=== PATIENT | male | born 1935 | race Caucasian/White ===

== ENCOUNTER → 2016-08-24 | Outpatient (CLI) | payer MEDICARE ==
--- NOTE | 2016-08-24 08:43 | US ---
EXAMINATION TYPE: US prostate transrectal DATE OF EXAM: 08/24/2016 7:54 AM COMPARISON: NONE CLINICAL HISTORY: R97.20 elevated PSA level. This examination was performed using the transrectal probe. EXAM MEASUREMENTS: Gland Size: 4.7 x 4.1 x 5.6 cm Volume: 57.4 ml Predicted PSA: 6.9 Actual PSA (if available):4.7 TECHNOLOGIST IMPRESSION: Hypoechoic lesion lt peripheral zone measuring 1.1 x 0.7 x 1.3 cm; hyperva scularity corresponds to area of lesion Seminal vesicles are incompletely imaged on single view saved. Prostate gland is enlarged in size and heterogeneous in appearance. Central zone hypertrophy is present. On image 35 and oval hypoechoic hy pervascular nodule is identified mid to apical level. IMPRESSION: Prostate gland is enlarged in size consistent with BPH, suspicious hypoechoic nodule lef t peripheral zone is noted. Further investigation with ultrasound guided core biopsy advised at this level as neoplasm needs to be considered.
== END | disposition home or self-care (01) ==
LOC: RADUSMAIN 07:24
PROVIDERS: ATTEND Internal Medicine
DX: N40.0 Benign prostatic hyperplasia without lower urinary tract symptoms (principal)
CPT/HCPCS: 76872

== ENCOUNTER 2016-10-09 08:32 | Day surgery (SDC) | payer MEDICARE ==
[2016-10-09 08:48] VITALS: RESP 20; TEMP 97.8
[2016-10-09 10:43] VITALS: BP 147/76; PULSE 57
--- NOTE | 2016-10-09 10:56 | US ---
Ultrasound-guided transrectal biopsy of the prostate gland. HISTORY: Elevated PSA. Informed consent was obtained and all the patient's questions were answered. Topical Xylocaine gel w as applied to the probe. The prostate gland was localized sonographically and 13 total samples were obtained with with 3 targeted samples of the lesion in question at the left apex. An 18-gauge biopsy device was utilized. Sites include right base, left base, right mid gland, left mid gland, right ap ex and left apex. Samples were sent to pathology further evaluation. The patient was monitored foll owing the biopsy for approximately one hour. At the time of discharge patient's urine was clear and vitals were stable. IMPRESSION: Successful ultrasound guided core biopsy of the prostate gland. Pathology results are pe nding.
== END 2016-10-09 11:15 | disposition home or self-care (01) ==
LOC: RADPROMAIN 08:32
PROVIDERS: ATTEND Surgery
DX: C61 Malignant neoplasm of prostate (principal); R93.8 Abnormal findings on diagnostic imaging of other specified body structures; R97.20 Elevated prostate specific antigen [PSA]
CPT/HCPCS: 55700; 88305

== ENCOUNTER → 2016-10-24 | Outpatient (CLI) | payer MEDICARE ==
[2016-10-24 09:04] LABS: Blood Urea Nitrogen 17 mg/dL (9-20); Non-African American GFR(MDRD) >60 (>60 ml/min/1.73 sqM)
--- NOTE | 2016-10-24 09:38 | XR ---
EXAMINATION TYPE: XR chest 2V DATE OF EXAM: 10/24/2016 8:56 AM COMPARISON: NONE HISTORY: Prostate cancer. TECHNIQUE: Frontal and lateral views of the chest are obtained. FINDINGS: There is no focal air space opacity, pleural effusion, or pneumothorax seen. The cardiac silhouette size is upper limits of normal. Some multilevel spurring in the thoracic spine is present. IMPRESSION: No acute cardiopulmonary process.
--- NOTE | 2016-10-24 11:10 | CT ---
EXAMINATION TYPE: CT abdomen pelvis w con DATE OF EXAM: 10/24/2016 10:45 AM COMPARISON: NONE HISTORY: Patient had US of prostate and was diagnosed with prostate cancer CT DLP: 1812.8 mGycm CONTRAST: CT scan of the abdomen and pelvis is performed with Oral Contrast and with IV Contrast, patient injec tacho with 100 mL of Omnipaque 300. FINDINGS: LUNG BASES-: No visible nodule. No infiltrate. LIVER/GB: No calcified gallstones. There is evidence of fatty hepatic infiltration. Simple cyst in the caudate lobe measures 2 cm in greatest dimension. No additional space-occupying lesions are prese nt. Biliary tree is of normal caliber. PANCREAS: No inflammation. No distinct mass. SPLEEN: No splenic enlargement. No lesion seen. ADRENALS: No nodule. No thickening. KIDNEYS/BLADDER: No hydronephrosis. No nephrolithiasis. Subcentimeter right renal cortical cyst. U rinary bladder grossly unremarkable. BOWEL: Normal appendix. Normal bowel caliber. No inflammation. GENITAL ORGANS: No gross abnormality. LYMPH NODES: No greater than 1cm abdominal or pelvic lymph nodes are appreciated. AORTA: No significant abnormality. 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 No blastic lesions a re seen at this time. Severe degenerative change about the hips bilaterally. Subchondral cystic guerrero e noted. OTHER: No significant additional abnormality is seen. IMPRESSION: 1. No CT evidence to suggest metastatic disease at this time. 2. Fatty liver. 3. Simple hepatic and right renal cysts.
--- NOTE | 2016-10-24 14:38 | NM ---
EXAMINATION TYPE: NM bone scan whole body DATE OF EXAM: 10/24/2016 1:59 PM COMPARISON: CT abdomen and pelvis earlier today. HISTORY: Prostate cancer. Delayed whole-body scanning was performed following the injection of 26.6 mCi Tc 99m MDP. Images acq uired 3 hours post injection. Whole body images as well as spot images of the thorax abdomen and pelv is are acquired. FINDINGS: Single focus of increased radiotracer uptake anterolateral left mid to lower rib roughly seventh eigh th rib correlates with bridging costochondral cartilage on CT. No additional areas of abnormal radiot racer uptake are seen to suggest metastatic disease to the bone or other abnormality. IMPRESSION: No convincing scintigraphic evidence for metastatic disease of bone.
== END ==
LOC: RADCTMAIN 08:22
PROVIDERS: ATTEND Urology
DX: C61 Malignant neoplasm of prostate (principal); N28.1 Cyst of kidney, acquired; K76.0 Fatty (change of) liver, not elsewhere classified
CPT/HCPCS: 82565; 84520; 71020; 74177; 36415; 78306; A9503; Q9967

== ENCOUNTER → 2017-05-03 | Outpatient (CLI) | payer MEDICARE ==
[2017-05-03 09:27] LABS: ALT 66 U/L (21-72); AST 51 U/L (17-59); Alkaline Phosphatase 48 U/L (38-126); Anion Gap 10 mmol/L; Blood Urea Nitrogen 26 mg/dL (9-20); Calcium 9.9 mg/dL (8.4-10.2); Carbon Dioxide 25 mmol/L (22-30); Chloride 102 mmol/L (98-107); Glucose 124 mg/dL (74-99); Non-African American GFR(MDRD) >60 (>60 ml/min/1.73 sqM); Potassium 4.6 mmol/L (3.5-5.1); Sodium 137 mmol/L (137-145); Total Bilirubin 0.6 mg/dL (0.2-1.3); Total Protein 7.3 g/dL (6.3-8.2)
[2017-05-03 09:32] LABS: Basophils % (A) 0 %; CH 34.5; CHCM 34.6; Eosinophils # (A) 0.2 k/uL (0-0.7); Eosinophils % (A) 4 %; HCT 36.6 % (39.0-53.0); HDW 2.25; HGB 12.4 gm/dL (13.0-17.5); Luc # (Auto) 0.11; Luc % (Auto) 2; Lymphocytes # (A) 0.8 k/uL (1.0-4.8); Lymphocytes % (A) 17 %; MCH 33.9 pg (25.0-35.0); MCHC 33.9 g/dL (31.0-37.0); Mean Platelet Volume 7.7; Monocytes # (A) 0.4 k/uL (0-1.0); Monocytes % (A) 9 %; Neutrophils # (A) 3.4 k/uL (1.3-7.7); Neutrophils % (A) 68 %; RBC 3.66 m/uL (4.30-5.90); RDW 12.5 % (11.5-15.5); WBC 4.9 k/uL (3.8-10.6); WBC (Perox) 4.91
[2017-05-03 10:00] LABS: Prostate Specific Antigen <0.10 ng/mL (0.00-4.00)
== END | disposition home or self-care (01) ==
LOC: LABWHC1 08:57
PROVIDERS: ATTEND Radiology Radiation Oncology
DX: C61 Malignant neoplasm of prostate (principal)
CPT/HCPCS: 36415; 80053; 84153; 85025

== ENCOUNTER → 2017-07-26 | Outpatient (CLI) | payer MEDICARE ==
[2017-07-26 09:56] LABS: Basophils % (A) 0 %; Eosinophils # (A) 0.2 k/uL (0-0.7); Eosinophils % (A) 4 %; HCT 34.6 % (39.0-53.0); HGB 11.5 gm/dL (13.0-17.5); Lymphocytes # (A) 0.8 k/uL (1.0-4.8); Lymphocytes % (A) 18 %; MCH 31.5 pg (25.0-35.0); MCHC 33.2 g/dL (31.0-37.0); MCV 94.9 fL (80.0-100.0); Mean Platelet Volume 7.8; Monocytes # (A) 0.3 k/uL (0-1.0); Monocytes % (A) 7 %; Neutrophils # (A) 3.1 k/uL (1.3-7.7); Neutrophils % (A) 68 %; Platelet Count 183 k/uL (150-450); RBC 3.64 m/uL (4.30-5.90); RDW 12.8 % (11.5-15.5); WBC 4.6 k/uL (3.8-10.6)
[2017-07-26 10:45] LABS: ALT 77 U/L (21-72); AST 57 U/L (17-59); Albumin 4.2 g/dL (3.5-5.0); Alkaline Phosphatase 44 U/L (38-126); Anion Gap 10 mmol/L; Blood Urea Nitrogen 24 mg/dL (9-20); Calcium 9.7 mg/dL (8.4-10.2); Carbon Dioxide 29 mmol/L (22-30); Chloride 100 mmol/L (98-107); Cholesterol 189 mg/dL (<200); Glucose 140 mg/dL (74-99); HDL Cholesterol 38 mg/dL (40-60); LDL Cholesterol,Calculated 119 mg/dL (0-99); Potassium 4.5 mmol/L (3.5-5.1); Sodium 139 mmol/L (137-145); Total Bilirubin 0.4 mg/dL (0.2-1.3); Total Protein 6.9 g/dL (6.3-8.2); Triglycerides 161 mg/dL (<150)
[2017-07-26 11:18] LABS: Prostate Specific Antigen <0.10 ng/mL (0.00-4.00)
== END | disposition home or self-care (01) ==
LOC: LABWHC1 09:01
PROVIDERS: ATTEND Radiology Radiation Oncology
DX: C61 Malignant neoplasm of prostate (principal); I10 Essential (primary) hypertension
CPT/HCPCS: 36415; 80053; 80061; 84153; 85025

== ENCOUNTER → 2018-02-18 | Outpatient (CLI) | payer MEDICARE ==
--- NOTE | 2018-02-18 11:53 | US ---
EXAMINATION TYPE: US kidneys/renal and bladder DATE OF EXAM: 02/18/2018 COMPARISON: CT dated 10/24/2016 CLINICAL HISTORY: R31.0 gross hematuria one month ago EXAM MEASUREMENTS: Right Kidney: 10.3 x 6.0 x 5.2 cm Left Kidney: 10.1 x 4.4 x 5.5 cm Post Void Residual Volume: 19.2 mL Right Kidney: No hydronephrosis or masses seen Left Kidney: No hydronephrosis or masses seen Bladder: wall thickened at 0.5cm Bilateral Jets seen: yes Normal Post Void Residual: yes There is no evidence for hydronephrosis at this point in time. No nephrolithiasis is seen. No preethi s are identified, cystic focus seen on CT scan the lower pole the right kidney anteriorly on previous exam is not visualized on today's exam. Kidneys show normal cortical medullary differentiation. The urinary bladder is anechoic, inferior impression likely due to prostate is noted. Bilateral ureteral jets are seen. IMPRESSION: Bladder wall thickening is noted, consider chronic outlet obstruction, cystitis. Normal post void res idual volume.
== END ==
LOC: RADUSWWP 09:50
PROVIDERS: ATTEND Urology
DX: R94.8 Abnormal results of function studies of other organs and systems (principal); R31.0 Gross hematuria
CPT/HCPCS: 76770

== ENCOUNTER → 2018-05-09 | Outpatient (CLI) | payer MEDICARE | END | disposition home or self-care (01) | LOC: LABWHC1 11:01 | PROVIDERS: ATTEND Radiology Radiation Oncology | DX: C61 Malignant neoplasm of prostate (principal); Z92.3 Personal history of irradiation | CPT/HCPCS: 36415; 84153 ==

== ENCOUNTER → 2018-11-07 | Outpatient (CLI) | payer MEDICARE ==
[2018-11-07 12:09] LABS: Basophils % (A) 0 %; Eosinophils # (A) 0.1 k/uL (0-0.7); Eosinophils % (A) 1 %; HCT 33.6 % (39.0-53.0); HGB 11.1 gm/dL (13.0-17.5); Lymphocytes % (A) 23 %; MCH 32.2 pg (25.0-35.0); MCV 97.5 fL (80.0-100.0); Monocytes # (A) 0.3 k/uL (0-1.0); Monocytes % (A) 7 %; Neutrophils % (A) 66 %; Platelet Count 207 k/uL (150-450); RBC 3.44 m/uL (4.30-5.90); RDW 12.3 % (11.5-15.5); WBC 4.5 k/uL (3.8-10.6)
== END | disposition home or self-care (01) ==
LOC: LABWHC1 11:14
PROVIDERS: ATTEND Radiology Radiation Oncology
DX: C61 Malignant neoplasm of prostate (principal); Z92.3 Personal history of irradiation
CPT/HCPCS: 36415; 84153; 85025